=== PATIENT | female | born 1995 | race Two or more races ===

== ENCOUNTER → 2021-07-11 | Outpatient (CLI) | payer OTHER ==
[~2021-07-11] MED LIST: FERR27TA2 PO; GLYB1.257 PO; PREN-96 PO
[2021-07-11 09:32] LABS: Basophils # (auto) 0 10 ^3/uL (0-0.2); Basophils % (auto) 0.3 % (0.0-2.0); Eosinophils # (auto) 0.1 10 ^3/uL (0-0.8); Eosinophils % (auto) 0.9 % (0.0-7.0); Hematocrit 33.3 % (36.0-46.0); Hemoglobin 11.1 g/dL (12.2-16.2); Lymphocytes # (auto) 1.3 10 ^3/uL (0.4-5.4); Lymphocytes % (auto) 16.9 % (10.0-50.0); Mean Corpuscular Hemoglobin 29.7 pg (28.0-32.0); Mean Corpuscular Hgb Conc. 33.2 g/dL (32.0-36.0); Mean Corpuscular Volume 89.6 fL (80.0-100.0); Monocytes # (auto) 0.7 10 ^3/uL (0-1.3); Monocytes % (auto) 9.4 % (0.0-12.0); Neutrophils # (auto) 5.8 10 ^3/uL (1.6-8.6); Neutrophils % (auto) 72.5 % (37.0-80.0); Nucleated Red Blood Cells % 0.1 %; Red Blood Cells 3.72 10^6/uL (4.0-5.20); Red Cell Distribution Width 13.2 % (11.8-14.3)
[2021-07-12 06:06] LABS: RPR Non Reactive (Non Reactive)
== END | disposition home or self-care (01) ==
LOC: LAB 08:51
PROVIDERS: ATTEND Obstetrics & Gynecology
DX: Z34.80 Encounter for supervision of other normal pregnancy, unspecified trimester (principal)
CPT/HCPCS: 36415; 84112; 85025; 86592

== ENCOUNTER 2021-07-12 10:00 | Observation (INO) | payer OTHER ==
[2021-07-12] MEDS ORDERED: PREN-96 PO (11:31)
[2021-07-12] MEDS ORDERED: FERR27TA2 PO (11:31)
[2021-07-12] MEDS ORDERED: GLYB1.257 PO (13:07)
== END 2021-07-12 12:15 | disposition home or self-care (01) ==
LOC: LDRP 10:00
PROVIDERS: ADMIT Obstetrics & Gynecology; ATTEND Obstetrics & Gynecology
DX: O36.5930 Maternal care for other known or suspected poor fetal growth, third trimester, not applicable or unspecified (principal); Z3A.35 35 weeks gestation of pregnancy
CPT/HCPCS: 59025; 76818; 81002; G0378

== ENCOUNTER 2021-07-18 08:25 | Observation (INO) | payer OTHER ==
[~2021-07-18] VITALS: Ht 160 cm; Wt 64.0 kg
[~2021-07-18 08:25] MED LIST changes: -FERR27TA2 PO; -GLYB1.257 PO
[2021-07-18] MEDS ORDERED: TERBUTALINE SULFATE 1 MG/ML 1ML VIAL SC ONE (14:45)
== END 2021-07-18 16:43 | disposition home or self-care (01) ==
LOC: LDRP 13:16
PROVIDERS: ADMIT Obstetrics & Gynecology; ATTEND Obstetrics & Gynecology
DX: O60.03 Preterm labor without delivery, third trimester (principal); O36.5930 Maternal care for other known or suspected poor fetal growth, third trimester, not applicable or unspecified; O62.9 Abnormality of forces of labor, unspecified; Z3A.36 36 weeks gestation of pregnancy; Z79.899 Other long term (current) drug therapy
CPT/HCPCS: 59025; 76818; 81002; 82948; 84112; 96372; G0378; G0379; J3105; Q0114

== ENCOUNTER 2021-07-20 18:00 | Observation (INO) | payer OTHER | END 2021-07-20 19:56 | disposition home or self-care (01) | LOC: LDRP 18:00 | PROVIDERS: ADMIT Obstetrics & Gynecology; ATTEND Obstetrics & Gynecology | DX: O36.5930 Maternal care for other known or suspected poor fetal growth, third trimester, not applicable or unspecified (principal); O60.03 Preterm labor without delivery, third trimester; O62.9 Abnormality of forces of labor, unspecified; Z3A.36 36 weeks gestation of pregnancy | CPT/HCPCS: 59025; 76818; 81002; G0378; G0379 ==

== ENCOUNTER 2021-07-25 10:17 | Observation (INO) | payer OTHER | END 2021-07-25 20:32 | disposition home or self-care (01) | LOC: LDRP 15:57 | PROVIDERS: ADMIT Obstetrics & Gynecology; ATTEND Obstetrics & Gynecology | DX: O36.5930 Maternal care for other known or suspected poor fetal growth, third trimester, not applicable or unspecified (principal); O62.9 Abnormality of forces of labor, unspecified; O26.893 Other specified pregnancy related conditions, third trimester; N89.8 Other specified noninflammatory disorders of vagina; O42.92 Full-term premature rupture of membranes, unspecified as to length of time between rupture and onset of labor; Z3A.37 37 weeks gestation of pregnancy | CPT/HCPCS: 59025; 76818; 81002; 84112; 94760; G0378; G0379; Q0114 ==

== ENCOUNTER 2021-07-30 02:32 | Inpatient (IN) | payer OTHER ==
[2021-07-30] MEDS ORDERED: LIDOCAINE 2%HCL (LOCAL ANESTH.) INJ 20ML MDV IJ PRN (03:00)
[2021-07-30] MEDS ORDERED: PROMETHAZINE HCL 25 MG/ML 1ML IV PRN (03:00)
[2021-07-30] MEDS ORDERED: DERMOPLAST 60ML BOTTLE TOP PRN (03:00)
[2021-07-30] MEDS ORDERED: PHISODERM TOP SOLN 240ML BTL TOP PRN (03:00)
[2021-07-30] MEDS ORDERED: OXYTOCIN 10UNIT/ML 1ML VIAL IM ONE (03:00)
[2021-07-30] MEDS ORDERED: BUTORPHANOL TARTRATE 2 MG/1 ML VIAL IV PRN ×2 (03:00)
[2021-07-30] MEDS ORDERED: LACT. RINGERS/OXYTOCIN 20UNITS 500 ML IV ONE ×2 (03:00→03:30)
[2021-07-30] MEDS ORDERED: LACTATED RINGER'S 1,000 ML IV SCH (03:00)
[2021-07-30 03:55] LABS: Basophils # (auto) 0 10 ^3/uL (0-0.2); Basophils % (auto) 0.3 % (0.0-2.0); Eosinophils # (auto) 0.1 10 ^3/uL (0-0.8); Eosinophils % (auto) 1.1 % (0.0-7.0); Hemoglobin 10.6 g/dL (12.2-16.2); Lymphocytes # (auto) 2.3 10 ^3/uL (0.4-5.4); Lymphocytes % (auto) 26.3 % (10.0-50.0); Mean Corpuscular Hemoglobin 29.5 pg (28.0-32.0); Mean Corpuscular Hgb Conc. 33.1 g/dL (32.0-36.0); Mean Corpuscular Volume 88.9 fL (80.0-100.0); Monocytes # (auto) 0.8 10 ^3/uL (0-1.3); Neutrophils # (auto) 5.5 10 ^3/uL (1.6-8.6); Neutrophils % (auto) 63.3 % (37.0-80.0); White Blood Cell 8.7 10^3/uL (4.4-10.8)
[2021-07-30 04:10] LABS: INR 0.93 (0.9-1.15); Partial Thromboplastin Time 24.2 sec (23.6-33.0)
[2021-07-30 04:14] LABS: Albumin 2.7 g/dL (3.4-5.0); Calcium 8.4 mg/dL (8.5-10.1); Potassium 3.7 mmol/L (3.5-5.1)
[2021-07-30 04:18] LABS: BUN/Creatinine Ratio 10.9; Bilirubin, Total 0.3 mg/dL (0.2-1.0); Total Protein 6.4 g/dL (6.4-8.2)
[2021-07-30 04:22] LABS: Alcohol, Urine < 3.0 mg/dL (0-10); Amphetamine Screen, Urine NEGATIVE (NEGATIVE); Barbiturate Scree,Urine NEGATIVE (NEGATIVE); Benzodiazephine Screen, Urine NEGATIVE (NEGATIVE); Cannabinoid Screen, Urine NEGATIVE (NEGATIVE); Cocaine Screen, Urine NEGATIVE (NEGATIVE); Opiate Scree,Urine NEGATIVE (NEGATIVE); Phencyclidine Screen, Urine NEGATIVE (NEGATIVE)
[2021-07-30 04:42] LABS: Urine Bacteria NONE SEEN /hpf (None Seen); Urine Blood Negative /uL (Negative); Urine Mucus FEW (None Seen); Urine WBC 1 /hpf (0 - 5)
[2021-07-30] MEDS ORDERED: METHYLERGONOVINE MALEATE 0.2 MG/ML AMP IM ONE (04:45)
[2021-07-30] MEDS ORDERED: miSOPROStol 100 mcg TAB PR PRN (04:45)
[2021-07-30] MEDS ORDERED: miSOPROStol 100 mcg TAB SL PRN (04:45)
[2021-07-30] MEDS: IBUPROFEN 600 MG TAB PO PRN ×2 (05:12→21:44)
[2021-07-30 11:11] VITALS: BP 102/69
[2021-07-30 15:20] VITALS: BP 94/59
[2021-07-30] MEDS: ACETAMINOPHEN 325 MG TAB PO PRN (17:48)
[2021-07-30 19:10] VITALS: BP 101/56
[2021-07-30] MEDS ORDERED: DOCUSATE SOD 100 MG CAP PO SCH (22:00)
[2021-07-30 23:00] VITALS: BP 107/64
[2021-07-31 03:15] VITALS: BP 105/55
[2021-07-31 06:46] VITALS: BP 112/65
[2021-07-31] MEDS: ACETAMINOPHEN 325 MG TAB PO PRN (06:53)
[2021-07-31] MEDS: WITCH HAZEL-GLYCERIN PAD TOP PRN ×2 (06:56→06:57)
[2021-08-01 05:07] LABS: RPR Non Reactive (Non Reactive)
== END 2021-07-31 10:10 | disposition home or self-care (01) | DRG 807 ==
LOC: LDRP 02:32 → OBSVTOIN 02:49 → LDRP 04:30
PROVIDERS: ADMIT Obstetrics & Gynecology; ATTEND Obstetrics & Gynecology
PROC: 10E0XZZ Delivery of Products of Conception, External Approach (ICD-10-PCS; principal; 2021-07-30)
PROC: 0UQMXZZ Repair Vulva, External Approach (ICD-10-PCS; 2021-07-30)
DX: O71.82 Other specified trauma to perineum and vulva (principal); Z37.0 Single live birth; Z20.822 Contact with and (suspected) exposure to COVID-19; Z3A.38 38 weeks gestation of pregnancy
CPT/HCPCS: 36415; 59025; 59409; 80053; 80307; 81001; 81002; 85025; 85610; 85730; 86592; 86850; 86900; 86901; 87426; 94760; 96360; 96361; 96365; 96366; 96372; G0378; J2590